=== PATIENT | female | born 1990 | race Hispanic/Latino ===

== ENCOUNTER 2022-02-28 15:00 | Inpatient (IN) | payer OTHER, SELFPAY ==
[2022-02-28] VITALS (106 sets, daily range): BP systolic 97–140; BP diastolic 50–84; PULSE 84–119; TEMP 36.2–36.8; O2SAT 98–100; BMI 33.2
[2022-02-28 15:38] LABS: Basophils Percent Auto 0.3 % (0.2-1.2); Eosinophils Absolute Auto 0.1 K/mm3 (0-0.3); Eosinophils Percent Auto 0.7 % (0-4.4); Hematocrit 34.3 % (37.0-47.0); Hemoglobin 11.6 g/dL (12.0-15.0); Immature Granulocyte Absolute 0.08 K/mm3 (0.00-0.031); Immature Granulocyte Percent A 0.8 % (0-0.5); Lymphocytes Absolute Auto 2.27 K/mm3 (0.9-3.2); Lymphocytes Percent Auto 22.3 % (18.3-44.2); Mean Corpuscular HGB Conc 33.8 g/dl (32-36); Mean Corpuscular Hemoglobin 31.4 pg (26-34); Mean Corpuscular Volume 92.7 fl (80-100); Monocytes Absolute Auto 0.5 K/mm3 (0.1-0.6); Monocytes Percent Auto 5.2 % (2.6-8.5); Neutrophils Absolute Auto 7.2 K/mm3 (1.3-6.7); Neutrophils Percent Auto 70.7 % (45.5-73.1); Platelet Count Result 239 k/mm3 (150-375); Red Cell Distribution Width 13.3 % (11.5-14.5); White Blood Count 10.2 K/mm3 (4.5-10.0)
[2022-02-28] MEDS: OXYTOCIN 30 UNITS/NS 500 ML 30 UNITS/500 ML BAG 6 UNITS IV CONT (15:52)
[2022-02-28] MEDS: LACTATED RINGERS 1,000 ML 125 ML IV CONT ×2 (15:52→19:44)
--- NOTE | 2022-02-28 15:53 | PM.IMHP ---
H&P: HPI History of Present Illness Date/Time: 02/28/22 15:53 Chief Complaint: Induction of labor term Narrative: this is a 31-year-old 1 para 0 last menstrual was 05/30/2020. EDC is 03/06/2022 confirmed by 9 week ultrasound presents at39+ weeks gestation for induction of labor. Her group B strep screen is negative and her cervix is favorable PMF Family History Family History Mother Anemia Social History Social History Substance use: never Spiritual care concerns: No Meds Home Medications and Allergies Home Medications Medication Instructions Recorded Confirmed Type ferrous sulfate 325 mg (65 mg 325 mg PO DAILY 02/09/22 02/09/22 History iron) tablet prenat.vits,keerthi,sto-ojeu-sdfnb 1 tablet PO HS 02/09/22 02/09/22 History Allergies Allergy/AdvReac Type Severity Reaction Status Date / Time No Known Allergies Allergy Mild Verified 04/30/12 11:17 Vital Signs Vital Signs - 24 hr 02/28/22 15:17 02/28/22 15:30 02/28/22 15:45 Pulse Rate 108 H 100 102 H Blood Pressure 121/71 115/76 114/78 Exam Const: General: cooperative, healthy appearing and comfortable Nutritional Appearance: average body habitus Orientation/consciousness: oriented to person, oriented to place and oriented to time HENMT: Head: normal to inspection Chest: Chest palpation & inspection: normal inspection of the chest Resp: Effort & Inspection: normal respiratory effort Cardio: Rate: regular rate Rhythm: regular rhythm Heart sounds: S1 normal heart sound present and S2 normal heart sound present GI: Inspection: normal to inspection : External Female Exam: normal external appearance Speculum Exam - Vagina: normal appearance of the vagina Speculum Exam - Cervix: Cervical os open ( 3cm. heart tones reassuring) Bimanual exam- vagina & uterus: enlarged H&P: Results Labs Labs: Short CBC 02/28/22 Range/Units 15:27 WBC 10.2 H (4.5-10.0) K/mm3 Hgb 11.6 L (12.0-15.0) g/dL Hct 34.3 L (37.0-47.0) % Plt Count 239 (150-375) k/mm3 Assessment and Plan Assessment and plan (1) Term : Code(s): Z34.90 - Encounter for supervision of normal , unspecified, unspecified trimester Status: Acute Plan medical induction of labor. Spontaneous vaginal delivery is expected
--- NOTE | 2022-02-28 15:57 | LDADM ---
This patient, Tiffanie Matos, was admitted to Labor/Delivery/Recovery 104 on 02/28/22 at 15:00. Plans for labor, pain management and were discussed with patient. Patient/family oriented to hospital policies and general routines including ID bracelet, bed and alarms, visiting hours, pain management, procedures, bathroom and other care routines, personal items, smoking policy, room service/diet and guest tray routines, security routines, and visiting hours. Patient/Family are encouraged to report perceived risks to care and to ask questions if they do not understand what they are told or what they should do. See OBIX for further documentation.
--- NOTE | 2022-02-28 18:54 | WPDANESEPPF ---
Anes - Initial Pre Proc Eval Procedure: labor epidural Date/Time: 02/28/22 18:54 Surgeon: Domingo Larkin MD Pre Op Diagnosis: labor pain Pre Op Diagnosis: iol Patient Data Age: 31 Gender: F Height: 1.6 m Weight: 85 kg Last Vital Signs Temp 36.2 C L 02/28/22 16:00 Pulse 96 02/28/22 18:53 BP 119/67 02/28/22 18:53 Pulse Ox 99 02/28/22 18:53 O2 Del Method Room Air 02/28/22 15:56 Allergies Allergy/AdvReac Type Severity Reaction Status Date / Time No Known Allergies Allergy Mild Verified 02/28/22 16:03 Home Medications Medication Instructions Recorded Confirmed Type ferrous sulfate 325 mg (65 mg 325 mg PO DAILY 02/09/22 02/28/22 History iron) tablet prenat.vits,keerthi,yib-jomm-nraio 1 tablet PO HS 02/09/22 02/28/22 History Laboratory Tests 02/28/22 02/28/22 02/28/22 15:27 15:27 15:27 WBC 10.2 K/mm3 H K/mm3 (4.5-10.0) RBC 3.70 M/mm3 L M/mm3 (4.2-5.4) Hgb 11.6 g/dL L g/dL (12.0-15.0) Hct 34.3 % L % (37.0-47.0) MCV 92.7 fl fl (80-100) MCH 31.4 pg pg (26-34) MCHC 33.8 g/dl g/dl (32-36) RDW 13.3 % % (11.5-14.5) Plt Count 239 k/mm3 k/mm3 (150-375) MPV 10.0 fl fl (7.4-10.4) Immature Gran % (Auto) 0.8 % H % (0-0.5) Neut % (Auto) 70.7 % % (45.5-73.1) Lymph % (Auto) 22.3 % % (18.3-44.2) [place] % (Auto) 5.2 % % (2.6-8.5) Eos % (Auto) 0.7 % % (0-4.4) Baso % (Auto) 0.3 % % (0.2-1.2) Lymph # (Auto) 2.27 K/mm3 K/mm3 (0.9-3.2) [place] # (Auto) 0.5 K/mm3 K/mm3 (0.1-0.6) Eos # (Auto) 0.1 K/mm3 K/mm3 (0-0.3) Baso # (Auto) 0.0 K/mm3 K/mm3 (0.0-0.1) Abs Immat Gran (auto) 0.08 K/mm3 H K/mm3 (0.00-0.031) Absolute Neuts (auto) 7.2 K/mm3 H K/mm3 (1.3-6.7) Absolute Nucleated RBC 0.0 K/mm3 K/mm3 (0.0-0.012) Nucleated RBC % 0.0 % % (0.0-0.2) RPR Pending Blood Type O Positive Antibody Screen Negative Patient hx anesthesia problems: none Family hx anesthesia problems: none Results Review: All pre-operative results and documents have been reviewed as part of the pre-operative evaluation. PMFSH Family History Family History Mother Anemia Social History Social History Smoking status: Never smoker Second hand tobacco smoke exposure: No Substance use: never Spiritual care concerns: No Anes - Eval Final PreProcedure Day of Procedure 02/28/22 18:54 Patient weight: obese ASA classification: II Anesthetic plan: proceed Anesthesia type and monitoring: regional epidural and standard monitoring Results Review: All pre-operative results and documents have been reviewed as part of the pre-operative evaluation. Informed Consent: The patient's anesthetic plan and its attendant risks and benefits were discussed with the patient/family/POA. Questions were solicited and answers provided to the satisfaction of the patient/family/POA.
[2022-03-01] VITALS (284 sets, daily range): BP systolic 100–142; BP diastolic 55–102; PULSE 39–163; RESP 18; TEMP 35.8–38.4; O2SAT 80–100
[2022-03-01] MEDS: LACTATED RINGERS 1,000 ML 125 ML IV CONT ×3 (04:10→14:33)
--- NOTE | 2022-03-01 06:16 | PM.OBPNLAB ---
Pain Control Date/time seen: 03/01/22 06:16 Pain control: tolerating well and epidural Pelvic Exam Dilation (cm): 8 Effacement (%): 100
[2022-03-01] MEDS: AMPICILLIN 2 GM/NS 100 ML 2 GM/100 ML BAG IVPB (10:11)
--- NOTE | 2022-03-01 11:33 | PM.OBPNLAB ---
Pain Control Date/time seen: 03/01/22 11:33 Pain control: tolerating well and epidural Pelvic Exam Dilation (cm): 8 Effacement (%): 100 station: -1 Amniotic membrane status: Leaking
[2022-03-01] MEDS: AMPICILLIN 1 GM/NS 50 ML 1 GM/50 ML BAG IVPB (14:32)
[2022-03-01 15:52] LABS: Rapid Plasma Reagin Non-Reactive (NonReactive)
--- NOTE | 2022-03-01 16:16 | PM.OBPNLAB ---
Pain Control Date/time seen: 03/01/22 16:16 Pain control: tolerating well and epidural Pelvic Exam Dilation (cm): 10 Effacement (%): 100 station: -1 Amniotic membrane status: Leaking
--- NOTE | 2022-03-01 18:09 | PM.OBPRVD ---
OB - Delivery Note Procedure Delivery date: 03/01/22 Induction method: AROM Delivery augmentation: Pitocin Delivery monitor: External FHT and Internal Uterine Route of delivery: Episiotomy description: None Laceration Description: Perineal - 2nd Degree Delivery repair: vicryl Specimen: No Quantitative Blood Loss (ml): 159 Anesthesia type: Epidural Disposition: Floor Complications: amp x 2 for prolonged rom Baby Date of : 03/01/22 Time of : 17:51 Weeks of gestation at delivery: 40 gender: Female Weight (pounds): 7 Weight (ounces): 5 presentation: vertex position: Left Occiput Anterior Placenta delivery description: Spontaneous Cord Vessel Description: 3 Vessels score one minute: 8 score five minutes: 9
[2022-03-01] MEDS: OXYTOCIN 30 UNITS/NS 500 ML 30 UNITS/500 ML BAG 125 UNITS IV CONT (18:17)
[2022-03-01] MEDS: IBUPROFEN 600 MG TABLET PO (18:40)
[2022-03-01] MEDS: WITCH HAZEL 40 PADS 1 PAD TOPICAL (18:40)
[2022-03-01] MEDS: BENZOCAINE 20% AER SPR (*SP) 56 GM CAN 1 SPRAY TOPICAL (18:40)
--- NOTE | 2022-03-01 20:44 | OBPPTRN ---
Patient transferred to post room #292 via (wheelchair). Support person present. Oriented to unit, room, information board, rooming in, admission packet and security measures. Patient verbalizes understanding.
[2022-03-01] MEDS: ACETAMINOPHEN 325 MG TABLET 650 MG PO (21:09)
[2022-03-02] VITALS (7 sets, daily range): BP systolic 86–108; BP diastolic 56–70; PULSE 86–112; RESP 16–18; TEMP 36.3–36.6; O2SAT 98–100
[2022-03-02 05:44] LABS: Hematocrit 27.1 % (37.0-47.0); Hemoglobin 8.9 g/dL (12.0-15.0)
--- NOTE | 2022-03-02 06:23 | PM.OBPNVD ---
OB - PN: Subj Subjective Date/time seen: 03/02/22 06:23 Patient comments: no complaints and pain well controlled baby status: doing well OB - PN: Obj Data Labs CBC & Chem 7: 03/02/22 05:22 Labs: Laboratory Results - last 24 hr 02/28/22 03/02/22 15:27 05:22 Hgb 8.9 L Hct 27.1 L RPR Non-reactive OB - PN A/P Plan day: 1 Plan: routine care Time Spent With Patient Time: Total time spent is greater than 50% in coordination of care (as documented) at patient's floor/unit and/or counseling patient: Time with patient: less than 15 minutes
[2022-03-02] MEDS: POLYSACCHARIDE IRON COMPLEX 150 MG CAPSULE PO ×2 (11:14→16:58)
[2022-03-02] MEDS: DOCUSATE SODIUM 100 MG CAPSULE PO ×2 (11:14→16:58)
[2022-03-02] MEDS: MULTIVIT/MIN/PREN/FOL AC/IRON TABLET 1 TAB PO (11:15)
[2022-03-02] MEDS: IBUPROFEN 600 MG TABLET PO ×2 (11:19→22:20)
--- NOTE | 2022-03-02 12:42 | PC.NURSE ---
[id number] - [id number] Introductions were made, then consulted with patient to assess needs related to . Mother led the conversation with her?plans to feed?her infant and the?experience so far. Resources provided for inpatient and outpatient services using a resource guide and mom/baby guide. Mother voiced understanding of information and requests assistance. Mother works well with her infant with encouragement and education. Encouraged understanding of the benefits of skin to skin (unwrapping and placing vertically on her chest), responsive feeding and how to watch for early feeding signs, frequency of feeding on demand about every 8-12 times in 24 hours (every 2-3 hours), milk production, hand expression with clean hands, duration of feeding, signs of adequate intake/output and how to record on the feeding sheet. Mother finger feeds colostrum to her infant. Nipple care reviewed with optimal latch and good positioning. Resources used to facilitate learning were used with the tool and mom/baby guide. Mother voiced understanding of responsive feedings, stimulating with skin to skin, hand expressed colostrum, touch, talking to infant to encourage if it has been 2 -3 hours since the start of the last , to call if infant does not latch or there is discomfort with . Reported to the primary RN.
[2022-03-02] MEDS: ACETAMINOPHEN 325 MG TABLET 650 MG PO (17:00)
[2022-03-03 09:50] VITALS: BP 110/71; PULSE 90; RESP 18; TEMP 36.4; O2SAT 100
[2022-03-03] MEDS: IBUPROFEN 600 MG TABLET PO (09:54)
[2022-03-03] MEDS: DOCUSATE SODIUM 100 MG CAPSULE PO (09:54)
[2022-03-03] MEDS: POLYSACCHARIDE IRON COMPLEX 150 MG CAPSULE PO (09:54)
[2022-03-03] MEDS: MULTIVIT/MIN/PREN/FOL AC/IRON TABLET 1 TAB PO (09:54)
[2022-03-03] MEDS: ACETAMINOPHEN 325 MG TABLET 650 MG PO (11:26)
--- NOTE | 2022-03-03 11:36 | PM.OBPNVD ---
OB - PN: Subj Subjective Date/time seen: 03/03/22 11:36 Narrative: Pain OK. Would like to go home. OB - PN: Obj Data Labs CBC & Chem 7: 03/02/22 05:22 OB - PN A/P Plan Comments: A: PPD#2, doing well. P: Home to f/u 6 weeks. Exam Psych: Other: AVSS ABD soft, nontender, fundus firm EXT nontender
[2022-03-06 08:59] VITALS: BP 131/84; PULSE 107; RESP 20; TEMP 37.2; O2SAT 100
--- NOTE | 2022-03-06 11:13 | PM.OBDSVD ---
DS: Admitting Diagnosis Discharge Date 03/03/22 Admitting Diagnosis IUP at term DS: Discharge Diagnosis Discharge Diagnosis (1) (normal spontaneous vaginal delivery): Code(s): O80 - Encounter for full-term uncomplicated delivery Status: Acute OB - DS: Summary OB Procedures : None OB Procedures Intrapartum: Spontaneous Vag Delivery OB Procedures: : None Time Spent with Patient Time attestation: Total time spent providing and/or coordinating discharge services: Discharge Plan Discharge Attending physician on discharge: Domingo Ariza Consulting providers: Girma Pretty Discharging Clinician: Domingo Ariza Patient Disposition: Home, Self-Care Activity: pelvic rest Diet: regular Discharge Instructions: Education: Mom and Baby Guide Given to: Mother Follow-Up: Call your delivering provider's office for an appointment to be seen in: 6 Weeks Mom and baby should come to the [facility] for the follow-up appointment. Appointment Date/Time: March 06, 2022 at 9:00 am What to expect at your follow-up visit: Blood Pressure Check Physical Assessment Call [phone] if you are unable to keep your appointment time. BREAST CARE: * Wear a snug supportive bra. * For engorgement discomfort: Breast Feeding: * Apply warm moist washcloths * Express milk as needed to relieve engorgement * Wear loose clothing * For sore nipples: * Identify correct latch-on * Apply warm moist washcloths before and after nursing * Air dry nipples after nursing * May apply Lansinoh cream to nipples EPISIOTOMY/PERINEAL CARE: * Until bleeding stops, use your jung bottle after urinating * Change your pad frequently throughout the day * You may take sitz baths several times a day (fill your bathtub with warm water and soak for 20 minutes.) Do NOT bathe in the water * No tub baths until seen by your physician - You may shower ACTIVITY: * Rest as much as possible. * Do not exercise or lift anything heavier than your baby (such as laundry or other children.) * Avoid stairs or driving as much as possible. * Do not put anything into the vagina. No douching, tampons, or sexual activity until seen by physician. NOTIFY PHYSICIAN IF YOU HAVE ANY QUESTIONS OR IF ANY OF THE FOLLOWING SYMPTOMS OCCUR: * If your episiotomy or incision becomes red, swollen, or more painful than what you have experienced in the hospital. * If your vaginal bleeding becomes foul smelling. * If your vaginal bleeding becomes more heavy than a period or if your bleeding changes from pink to bright red. However, you may pass an occasional walnut-sized clot once or twice for the first week . * If you experience a sharp, shooting pain in your calves. * If you discover a hard, reddened area on your breast or if you experience flu-like symptoms. DIET: * Eat regular, well-balanced meals. * Drink plenty of fluids daily. If , drink to thirst.Call or return if temperature above 100.4? F, increased abdominal pain, increased vaginal bleeding or any new problems. Stand Alone Forms: General Discharge Information Follow-up/Referrals: Domingo Ariza MD [Physician] - PHYSICIAN,[facility] [Primary Care Provider] - 6 Weeks Discharge Medications: New ibuprofen 600 mg tablet 600 mg PO Q6H PRN (Reason: cramps) Qty: 30 0RF Continued prenat.vits,keerthi,miz-kzcd-enolq Tablet 1 tablet PO HS ferrous sulfate 325 mg (65 mg iron) Tablet 325 mg PO DAILY Date of admission: 02/28/22 15:00 Primary Care Provider: PHYSICIAN,[facility] Admitting Provider: Domingo Ariza Attending physician on admission: Marbin Weinberg Condition: Stable
== END 2022-03-03 13:51 | disposition home or self-care (01) | DRG 807 ==
LOC: ANHOB2 03-03 12:42 → ANHLDR 03-06 08:57 → ANHOB2 03-06 08:57
PROVIDERS: Admitting Provider Obstetrics & Gynecology; Visit Provider Obstetrics & Gynecology
DX: O42.92 Full-term premature rupture of membranes, unspecified as to length of time between rupture and onset of labor (principal); Z37.0 Single live birth; O76 Abnormality in fetal heart rate and rhythm complicating labor and delivery; O70.1 Second degree perineal laceration during delivery; Z3A.39 39 weeks gestation of pregnancy
CPT/HCPCS: 36415; 85014; 85018; 85025; 86592; 86850; 86900; 86901; A9270; J0290; J2590; J2795; J7120

== ENCOUNTER 2022-03-14 13:55 | Outpatient (CLI) | payer OTHER, SELFPAY ==
--- NOTE | 2022-03-14 15:59 | PC.NURSE ---
In- 1355 Out- 1516 Reason for visit: latch issues and pumping questions History: Mother was induced (Pitocin/ AROM) 02/28 1500 and delivered vaginally a female of 40 EGA on 03/01 1751. QBL 159 and received Ampicillin for prolonged ROM. Introductions with support RN was made with mother once during her hospital post period and mother was taught how to hand express human milk for her infant related to infant being sleepy and reluctant to breastfeed. Mother was encouraged to call for assistance and did not. Mother desires to pump to feed her , latches without assistance, reported confident with Infant History: from mother after for weight and X-rays. Mother attempted to breastfeed and did not maintain latch. Mother pumped and fed hand expressed human milk in the hospital. Infant is recovered from a right arm brachial injury. The top lip frenulum appears tight. Observations: Mother attempts to breastfeed with her infant's body not close to hers. Encouraged skin to skin before , 's body tucked in closely to mother's body, chin leading to the breast with big, wide, open gape. Mother states there is no pain like at home. rarely has a good suck to swallow ratio of 2:1 or 3:1. weight: 7-5 (3320g) Lowest weight: 7-1.4 (3214g) Last weight: Mother states it was 7-10 Pre-feed weight: Pre - weight was obtained after infant breastfed effective for 15-20 minutes on the right breast. 7-4.6 (3306g) Post-feed weight: 7-5 (3319g) Infant breastfed for 20 on the left breast with suck swallow ratios of 3:1 - 5:1 Most of the observation demonstrated non-nutritive sucking with occasional swallowing with stimulation. began frantic behaviors after 30-40 minutes of practice with mouth open moving head back and forth over the mother's nipple and wouldn't settle for additional practice . Father of baby bottle fed formula while mother was encouraged to pump. Plan of Care: Mother was encouraged to practice if that is her desire. She states she would rather pump and feed. Mother encouraged to consistently pump 8 times in a 24 hour period 1-2 times at night. If her doesn't latch or the latch is pain to detach (reviewed education on how to detach to protect the nipple) and mother should pump her breast. If father feeds infant a formula bottle, then mother stimulates with pumping. To increase 's feedings 1/4 oz as needed to obtain a contentedly fed . Infant to drink 2oz - 2.5 oz in a 24 hour period. Parents voiced understanding information. Follow up plans: Patient voiced understanding of when to call ICP and encouraged to call support for any questions or concerns. Infant has an appt tomorrow at the packaging designer's office.
== END 2022-03-14 13:56 | disposition home or self-care (01) ==
LOC: ANHOBOP 13:57
PROVIDERS: Visit Provider Pediatrics
DX: Z39.1 Encounter for care and examination of lactating mother (principal)
CPT/HCPCS: 99213; G0463